=== PATIENT | female | born 1995 | race Caucasian/White ===

== ENCOUNTER → 2016-09-30 | Outpatient (CLI) | payer OTHER ==
--- NOTE | 2016-09-30 12:04 | DIAGNOSTIC IMAGING REPORT ---
RIGHT HAND MIN 3 VIEWS ROUTINE CLINICAL HISTORY: Right hand pain following injury. COMPARISON: None FINDINGS: Alignment of the right hand is anatomic. No acute fracture is identified. Scaphoid appears intact. IMPRESSION: No acute fracture or dislocation of the right hand. Electronically signed by: Jose Dodge M.D. 09/30/2016 12:02 PM Dictated Date/Time: 09/30/2016 12:00 PM
--- NOTE | 2016-09-30 12:24 | DIAGNOSTIC IMAGING REPORT ---
THORACIC SPINE 3 VIEWS HISTORY: Injury to thoracic spine with BACK PAIN COMPARISON: None. FINDINGS: There is no fracture. No subluxation. Disc spaces are preserved. Minimal levoscoliosis which could be positional. IMPRESSION: No fracture or subluxation within the thoracic spine. Electronically signed by: Ney Loredo M.D. 09/30/2016 12:23 PM Dictated Date/Time: 09/30/2016 12:19 PM
== END | disposition home or self-care (01) ==
LOC: C.RAD1850 10:15
PROVIDERS: ATTEND Nurse Practitioner Adult Health
DX: M54.6 Pain in thoracic spine (principal); M79.641 Pain in right hand